=== PATIENT | male | born 1950 | race Two or more races ===

== ENCOUNTER 2019-04-21 11:22 | Inpatient (IN) | payer OTHER, MEDICAID ==
[~2019-04-21] VITALS: Ht 162.6 cm; Wt 70.8 kg
[2019-04-21] MEDS ORDERED: NITROGLYCERIN 50MCG/ML 10ML VIAL (CATH LAB) IV ONE (11:25)
[2019-04-21] MEDS ORDERED: HEPARIN SODIUM 1,000 UNIT/1ML VIAL IV ONE (11:25)
[2019-04-21] MEDS ORDERED: NICARDIPINE 100MCG/ML 10ML VIAL (CATH LAB) IV ONE (11:25)
[2019-04-21] MEDS ORDERED: VISCOUS LIDOCAINE 2% 15 ML UDC PO ONE (12:00)
[2019-04-21] MEDS ORDERED: MAGNESIUM/ALUMINUM HYDROXIDE/SIMETHICONE 30ML UDC PO ONE (12:00)
[2019-04-21] MEDS ORDERED: SODIUM CHLORIDE 0.9% 1,000 ML IV ONE (12:00)
[2019-04-21] MEDS ORDERED: NITROGLYCERIN OINT 1GM/INCH UDPKT TD ONE (12:00)
[2019-04-21] MEDS ORDERED: ASPIRIN 325MG EC TABLET PO ONE (12:00)
[2019-04-21 12:27] LABS: BASOPHILS % 0.8 % (0.0-2.0); EOSINOPHILS % 0.8 % (0.0-5.0); HEMATOCRIT. 44.4 % (42.0-52.0); HEMOGLOBIN. 15.3 g/dL (14.0-18.0); LYMPHOCYTES % 17.7 % (20.0-50.0); MEAN CORPUSCULAR HEMOGLOBIN 33.9 pg (28.0-32.0); MEAN CORPUSCULAR VOLUME 98.2 fL (80.0-94.0); MEAN PLATELET VOLUME 9.7 fl (7.4-10.4); MONOCYTES % 8.8 % (2.0-8.0); NEUTROPHILS % 71.9 % (40.0-76.0); PLATELET 203 x1000/uL (130-400); RED BLOOD CELL COUNT 4.52 mill/uL (4.7-6.1); RED CELL DISTRIBUTION WIDTH 13.2 % (11.6-14.6)
[2019-04-21 12:32] LABS: PROTHROMBIN TIME 10.8 sec (9.6-11.0)
[2019-04-21 12:37] LABS: CHLORIDE 111 mEq/L (98-107)
[2019-04-21] MEDS ORDERED: MORPHINE SULFATE 2 MG/ML CPJ (NOT FOR IM USE) IV ONE (13:45)
[2019-04-21 14:32] LABS: CLARITY URINE CLEAR (CLEAR); COLOR URINE YELLOW (YELLOW); KETONES URINE NEGATIVE (NEGATIVE); LEUKOCYTE ESTERASE URINE NEGATIVE (NEGATIVE); NITRITE URINE NEGATIVE (NEGATIVE); OCCULT BLOOD URINE NEGATIVE (NEGATIVE); PH URINE 6.5 (4.5-8.0); PROTEIN URINE 1+ (NEGATIVE); SPECIFIC GRAVITY URINE 1.005 (1.005-1.030); UROBILINOGEN URINE 0.2 E.U./dL (0.2-1.0)
[2019-04-21] MEDS ORDERED: LIDOCAINE HCL 1% 20ML VIAL (Pyxis) INJ ONE ×2 (15:10→15:26)
[2019-04-21] MEDS ORDERED: MIDAZOLAM HCL 2 MG/2 ML VIAL ONE (15:10)
[2019-04-21] MEDS ORDERED: FENTANYL CITRATE/PF 50MCG/ML 2ML VIAL ONE (15:10)
[2019-04-21] MEDS ORDERED: IOHEXOL-300 100 ML BOTTLE ONE (15:11)
[2019-04-21] MEDS ORDERED: IODIXANOL 320MG/ML 100 ML BOTTLE IV ONE (15:22)
[2019-04-21] MEDS ORDERED: ASPIRIN/SOD BICARB/CITRIC ACID 324MG TAB EFF ONE (15:30)
[2019-04-21] MEDS ORDERED: CLOPIDOGREL 75MG TABLET ONE (16:04)
[2019-04-21] MEDS ORDERED: ATROPINE SULFATE 1MG/10ML SYR IV PRN (16:15)
[2019-04-21] MEDS ORDERED: ACETAMINOPHEN 325MG TABLET PO PRN ×2 (16:15→17:00)
[2019-04-21 16:50] VITALS: BP 125/71
[2019-04-21] MEDS ORDERED: MAGNESIUM/ALUMINUM HYDROXIDE/SIMETHICONE 30ML UDC PO PRN (17:00)
[2019-04-21] MEDS ORDERED: HYDROCODONE/ACETAMINOPHEN 5/325MG TABLET PO PRN (17:00)
[2019-04-21] MEDS ORDERED: DOCUSATE SODIUM 100MG CAPSULE PO PRN (17:00)
[2019-04-21] MEDS ORDERED: MORPHINE SULFATE 2 MG/ML CPJ (NOT FOR IM USE) IV PRN (17:00)
[2019-04-21] MEDS ORDERED: ACETAMINOPHEN 650MG SUPP PR PRN (17:00)
[2019-04-21] MEDS: LOSARTAN POTASSIUM 50 MG TABLET PO SCH (17:14)
[2019-04-21 17:44] VITALS: BP 138/73
[2019-04-21 18:23] LABS: BG BASE EXCESS -4.1 mmol/L (-2.0-2.0); BG CARBOXYHEMOGLOBIN 0.5 % (0.5-1.5); BG DEOXYHEMOGLOBIN 1.7 % (0.0-5.0); BG FRACTION INSPIRED OXYGEN 32; BG HCO3 ACT 20.1 mmol/L (22.0-26.0); BG METHEMOGLOBIN 0.4 % (0.0-1.5); BG OXYGEN SATURATION 98.3 % (92.0-98.5); BG OXYHEMOGLOBIN 97.4 % (94.0-97.0); BG PCO2 34.6 mmHg (35.0-45.0); BG PH 7.383 (7.350-7.450); BG PO2 128.8 mmHg (75.0-100.0); BG SAMPLE SITE RIGHT RADIAL; BG TOTAL HEMOGLOBIN 14.9 g/dL (12.0-18.0); BG VENT MODE NASAL CANNULA
[2019-04-21 20:00] VITALS: BP 140/74
[2019-04-21] MEDS: ATORVASTATIN CALCIUM 40MG TABLET PO SCH (21:49)
[2019-04-21 22:00] VITALS: BP 127/75
[2019-04-22] VITALS (11 sets, daily range): BP systolic 92–125; BP diastolic 52–70
[2019-04-22 01:12] LABS: CREATINE KINASE MB FRACTION 89.1 ng/mL (0.5-3.6)
[2019-04-22 06:38] LABS: CHLORIDE 112 mEq/L (98-107)
[2019-04-22 06:47] LABS: BASOPHILS % 0.4 % (0.0-2.0); EOSINOPHILS % 0.7 % (0.0-5.0); HEMATOCRIT. 42.6 % (42.0-52.0); HEMOGLOBIN. 14.4 g/dL (14.0-18.0); LDL CHOLESTEROL 103 mg/dL (5-100); LYMPHOCYTES % 16.6 % (20.0-50.0); MEAN CORPUSCULAR HEMOGLOBIN 34.2 pg (28.0-32.0); MEAN PLATELET VOLUME 10.4 fl (7.4-10.4); NEUTROPHILS % 72.3 % (40.0-76.0); PLATELET 174 x1000/uL (130-400); RED BLOOD CELL COUNT 4.22 mill/uL (4.7-6.1); RED CELL DISTRIBUTION WIDTH 13.6 % (11.6-14.6)
[2019-04-22 06:49] LABS: HDL CHOLESTEROL 44 mg/dL (40-59)
[2019-04-22] MEDS: ASPIRIN 81MG TABLET PO SCH (10:54)
[2019-04-22] MEDS: CLOPIDOGREL 75MG TABLET PO SCH (10:54)
[2019-04-22] MEDS ORDERED: ATROPINE SULFATE 0.1MG/ML 10ML DISP.SYRIN ONE (11:00)
[2019-04-22] MEDS: LOSARTAN POTASSIUM 50 MG TABLET PO SCH (12:00)
[2019-04-22] MEDS: OMEPRAZOLE 20MG CAPSULE EXTENDED RELEASE PO SCH (15:07)
[2019-04-22] MEDS: COLCHICINE 0.6MG TABLET PO SCH ×2 (15:07→21:40)
[2019-04-22] MEDS: NICOTINE 14MG PATCH TD SCH (16:45)
[2019-04-22] MEDS ORDERED: HYDRALAZINE 20MG/ML VIAL IV PRN (17:00)
[2019-04-22] MEDS: KETOROLAC 15MG/ML VIAL IV SCH (17:03)
[2019-04-22] MEDS: ALPRAZOLAM 0.25 MG TABLET PO SCH (17:39)
[2019-04-22] MEDS ORDERED: DEXTROSE 50% WATER 50ML SYRINGE IV ONE (20:31)
[2019-04-22] MEDS: DIPHENHYDRAMINE 50MG/ML VIAL IV PRN (21:41)
[2019-04-22] MEDS: ATORVASTATIN CALCIUM 40MG TABLET PO SCH (21:41)
[2019-04-23] VITALS (10 sets, daily range): BP systolic 104–128; BP diastolic 57–76
[2019-04-23] MEDS: OMEPRAZOLE 20MG CAPSULE EXTENDED RELEASE PO SCH (06:22)
[2019-04-23 07:55] LABS: BASOPHILS % 0.4 % (0.0-2.0); EOSINOPHILS % 0.3 % (0.0-5.0); HEMATOCRIT. 40.6 % (42.0-52.0); HEMOGLOBIN. 14.1 g/dL (14.0-18.0); MEAN CORPUSCULAR HEMOGLOBIN 34.5 pg (28.0-32.0); MEAN CORPUSCULAR VOLUME 99.4 fL (80.0-94.0); MEAN PLATELET VOLUME 9.9 fl (7.4-10.4); NEUTROPHILS % 75.3 % (40.0-76.0); PLATELET 152 x1000/uL (130-400); RED BLOOD CELL COUNT 4.08 mill/uL (4.7-6.1); RED CELL DISTRIBUTION WIDTH 13.4 % (11.6-14.6)
[2019-04-23 08:04] LABS: CHLORIDE 110 mEq/L (98-107)
[2019-04-23] MEDS: NICOTINE 14MG PATCH TD SCH (09:00)
[2019-04-23] MEDS: ALPRAZOLAM 0.25 MG TABLET PO SCH ×2 (09:05→22:07)
[2019-04-23] MEDS: ASPIRIN 81MG TABLET PO SCH (09:05)
[2019-04-23] MEDS: CLOPIDOGREL 75MG TABLET PO SCH (09:05)
[2019-04-23] MEDS: COLCHICINE 0.6MG TABLET PO SCH ×2 (09:05→22:07)
[2019-04-23] MEDS: LOSARTAN POTASSIUM 50 MG TABLET PO SCH (09:05)
[2019-04-23] MEDS: KETOROLAC 15MG/ML VIAL IV SCH ×2 (09:05→17:00)
[2019-04-23 11:19] LABS: HEPATITIS B SURFACE ANTIGEN NEGATIVE
[2019-04-23 11:49] LABS: HEPATITIS A AB IGM NEGATIVE (NEGATIVE)
[2019-04-23] MEDS: LEVOFLOXACIN 500MG PREMIX 100 ML IV SCH (17:40)
[2019-04-23] MEDS: METRONIDAZOLE 500 MG PREMIX 100 ML IV SCH (18:43)
[2019-04-23] MEDS: ATORVASTATIN CALCIUM 40MG TABLET PO SCH (22:07)
[2019-04-24] VITALS (10 sets, daily range): BP systolic 98–120; BP diastolic 47–71
[2019-04-24] MEDS: DIPHENHYDRAMINE 50MG/ML VIAL IV PRN (00:47)
[2019-04-24] MEDS: METRONIDAZOLE 500 MG PREMIX 100 ML IV SCH ×3 (00:47→13:49)
[2019-04-24] MEDS: OMEPRAZOLE 20MG CAPSULE EXTENDED RELEASE PO SCH (06:19)
[2019-04-24 06:29] LABS: BASOPHILS % 0.5 % (0.0-2.0); EOSINOPHILS % 0.7 % (0.0-5.0); HEMATOCRIT. 38.5 % (42.0-52.0); HEMOGLOBIN. 13.4 g/dL (14.0-18.0); MEAN CORPUSCULAR HEMOGLOBIN 34.9 pg (28.0-32.0); MEAN CORPUSCULAR VOLUME 99.9 fL (80.0-94.0); MONOCYTES % 11.7 % (2.0-8.0); NEUTROPHILS % 70.1 % (40.0-76.0); PLATELET 139 x1000/uL (130-400); RED BLOOD CELL COUNT 3.85 mill/uL (4.7-6.1); RED CELL DISTRIBUTION WIDTH 13.5 % (11.6-14.6)
[2019-04-24 06:36] LABS: CHLORIDE 109 mEq/L (98-107)
[2019-04-24] MEDS: ASPIRIN 81MG TABLET PO SCH (09:18)
[2019-04-24] MEDS: CLOPIDOGREL 75MG TABLET PO SCH (09:19)
[2019-04-24] MEDS: KETOROLAC 15MG/ML VIAL IV SCH ×2 (09:19→16:49)
[2019-04-24] MEDS: COLCHICINE 0.6MG TABLET PO SCH (09:19)
[2019-04-24] MEDS: LOSARTAN POTASSIUM 50 MG TABLET PO SCH (09:19)
[2019-04-24] MEDS: ALPRAZOLAM 0.25 MG TABLET PO SCH (09:21)
[2019-04-24] MEDS: LEVOFLOXACIN 500MG PREMIX 100 ML IV SCH (11:24)
[2019-04-24] MEDS ORDERED: COLC0.6C3 PO (15:32)
[2019-04-24] MEDS ORDERED: ASPI-1158 PO (15:33)
[2019-04-24] MEDS ORDERED: CLOP75TA4 PO (15:35)
[2019-04-24] MEDS ORDERED: LOSA50TA41 PO (15:35)
[2019-04-24] MEDS ORDERED: ATOR40TA70 PO (15:35)
== END 2019-04-24 18:15 | disposition home or self-care (01) | DRG 246 ==
LOC: ER 11:22 → ORIP 13:10 → EDBEDREQ 13:12 → EDBEDREQSVC 13:12 → EDBEDREQTM 13:12 → 3WST 16:34
PROVIDERS: ADMIT Internal Medicine; ATTEND Internal Medicine
PROC: 4A023N7 Measurement of Cardiac Sampling and Pressure, Left Heart, Percutaneous Approach (ICD-10-PCS; principal; 2019-04-21)
PROC: 027034Z Dilation of Coronary Artery, One Artery with Drug-eluting Intraluminal Device, Percutaneous Approach (ICD-10-PCS; 2019-04-21)
PROC: B2111ZZ Fluoroscopy of Multiple Coronary Arteries using Low Osmolar Contrast (ICD-10-PCS; 2019-04-21)
DX: I21.19 ST elevation (STEMI) myocardial infarction involving other coronary artery of inferior wall (principal); R65.11 Systemic inflammatory response syndrome (SIRS) of non-infectious origin with acute organ dysfunction; M62.82 Rhabdomyolysis; J44.9 Chronic obstructive pulmonary disease, unspecified; E86.0 Dehydration; I10 Essential (primary) hypertension; K21.9 Gastro-esophageal reflux disease without esophagitis; R73.9 Hyperglycemia, unspecified; I25.5 Ischemic cardiomyopathy; D72.829 Elevated white blood cell count, unspecified; E78.5 Hyperlipidemia, unspecified; R00.1 Bradycardia, unspecified; R79.89 Other specified abnormal findings of blood chemistry; K83.8 Other specified diseases of biliary tract; R13.10 Dysphagia, unspecified; R47.02 Dysphasia; K75.81 Nonalcoholic steatohepatitis (NASH); F17.210 Nicotine dependence, cigarettes, uncomplicated; Z90.49 Acquired absence of other specified parts of digestive tract; Z88.0 Allergy status to penicillin; Z88.1 Allergy status to other antibiotic agents
CPT/HCPCS: 36415; 36600; 71045; 74176; 74181; 76700; 80048; 80053; 80061; 80076; 81003; 82248; 82375; 82550; 82553; 82805; 83036; 83735; 83880; 84145; 84484; 85025; 85347; 86705; 86709; 86803; 86850; 86900; 87340; 87804; 92928; 93005; 93306; 93458; 93970; 99291; C1760; C1769; C1874; C1887; C1893; J0461; J1200; J1644; J1885; J1956; J2250; J2270; J3010; J3490; J7030; Q9967